=== PATIENT | male | born 1985 | race Caucasian/White ===

== ENCOUNTER 2018-05-01 13:22 | Emergency (ER) | payer SELFPAY ==
[~2018-05-01] VITALS: Ht 188 cm; Wt 154.0 kg
[2018-05-01 13:32] VITALS: BP 147/81
[2018-05-01] MEDS ORDERED: PROPARACAINE OPHTH 0.5%, 15ML LEFTEYE ONE (14:00)
[2018-05-01] MEDS ORDERED: FLUORESCEIN OPHTHALMIC 1 MG STRIP LEFTEYE ONE (14:00)
[2018-05-01] MEDS ORDERED: DIPHENHYDRAMINE 25 MG CAPSULE ONE (14:20)
[2018-05-01] MEDS ORDERED: FAMOTIDINE 20 MG TABLET ONE (14:21)
[2018-05-01] MEDS ORDERED: DIPHENHYDRAMINE 25 MG CAPSULE PO ONE (14:30)
[2018-05-01] MEDS ORDERED: FAMOTIDINE 20 MG TABLET PO ONE (14:30)
[2018-05-01] MEDS ORDERED: FLUORESCEIN/BENOXINATE 5 ML DROPS OP ONE (14:30)
== END 2018-05-01 15:00 | disposition home or self-care (01) ==
LOC: ED 14:05
DX: T78.49XA Other allergy, initial encounter (principal); X58.XXXA Exposure to other specified factors, initial encounter
CPT/HCPCS: 99284; J7512; Q0163